=== PATIENT | female | born 1965 | race African-American/Black ===

== ENCOUNTER 2022-02-12 13:07 | Emergency (ER) | payer OTHER ==
[~2022-02-12] VITALS: Ht 162.6 cm; Wt 110.0 kg
[2022-02-12 15:50] VITALS: BP 148/87
[2022-02-12] MEDS ORDERED: KETOROLAC 60MG/2ML VIAL IM STA (15:50)
[2022-02-12] MEDS ORDERED: TRAM50TA3 PO ×2 (18:13)
[2022-02-12] MEDS ORDERED: NAPR-681 PO (18:13)
[2022-02-12] MEDS ORDERED: T3 PO (18:34)
== END 2022-02-12 18:38 | disposition home or self-care (01) ==
LOC: ER 13:07
DX: M25.512 Pain in left shoulder (principal); M25.561 Pain in right knee; I10 Essential (primary) hypertension
CPT/HCPCS: 73030; 73562; 96372; 99284; J1885